=== PATIENT | female | born 1985 | race Caucasian/White ===

== ENCOUNTER → 2018-08-16 | Outpatient (CLI) | payer OTHER ==
[~2018-08-16] MED LIST: Abilify5 MG; BACTRIM; BUPR100 PO; BUPROPION; Bactrim Ds Tab1 EACH PO; CEPH500 PO; CLINDAMYCIN; CYCL10 PO; Cheratussin AC118 ML PO; Cipro500 MG PO; Cleocin HCl300 MG PO; HYDPAM25 PO; IBUP400 PO; IBUP600 PO; IBUP800 PO; METPRE4DP PO; NYST237S PO; Norco 10-325 T1 EACH PO; Norco 5-325 Ta1 EACH PO; OXYACE5T PO; SULTRIDS PO; Ultram50 MG PO; Zithromax250 MG PO; [UNRECOGNIZED DRUG - OTHER]
[2018-08-17 16:08] LABS: HPV 16 Negative (Negative); HPV 18 Negative (Negative); HPV OTHER HR TYPES Negative (Negative)
== END | disposition home or self-care (01) ==
LOC: LAB SHORT 12:35 → LAB 12:35
PROVIDERS: Obstetrics & Gynecology
DX: Z12.4 Encounter for screening for malignant neoplasm of cervix (principal)
CPT/HCPCS: 87624; G0123

== ENCOUNTER → 2019-08-17 | Outpatient (CLI) | payer OTHER ==
[2019-08-21 16:06] LABS: HPV 16 Negative (Negative); HPV 18 Negative (Negative); HPV OTHER HR TYPES Positive (Negative)
== END | disposition home or self-care (01) ==
LOC: LAB 16:27 → LAB SHORT 16:27
PROVIDERS: Obstetrics & Gynecology
DX: Z12.4 Encounter for screening for malignant neoplasm of cervix (principal)
CPT/HCPCS: 87624; 87625; G0123

== ENCOUNTER → 2020-08-22 | Outpatient (CLI) | payer OTHER ==
[~2020-08-22] MED LIST changes: +Adipex-P37.5 M1 PO; +ETONOGESTREL-E1 EAC1 VG; +EUTHYROX100 MC1 PO; +Levaquin750 MG PO; +ONDA4ODT SL; +Percocet 5-3251 EACH PO
[2020-08-27 15:12] LABS: HPV 16 Negative (Negative); HPV 18 Negative (Negative); HPV OTHER HR TYPES Positive (Negative)
== END | disposition home or self-care (01) ==
LOC: LAB SHORT 12:00 → LAB 12:00
PROVIDERS: Obstetrics & Gynecology
DX: R87.810 Cervical high risk human papillomavirus (HPV) DNA test positive (principal)
CPT/HCPCS: 87624; 87625; 88142

== ENCOUNTER 2020-10-04 17:44 | Emergency (ER) | payer OTHER ==
[~2020-10-04] VITALS: Ht 177.8 cm; Wt 104.3 kg
[~2020-10-04 17:44] MED LIST changes: -Adipex-P37.5 M1 PO; -ETONOGESTREL-E1 EAC1 VG; -EUTHYROX100 MC1 PO; -Levaquin750 MG PO; -ONDA4ODT SL; -Percocet 5-3251 EACH PO
[2020-10-04] MEDS ORDERED: EUTHYROX100 MC1 PO (18:45)
[2020-10-04] MEDS ORDERED: ETONOGESTREL-E1 EAC1 VG (18:45)
[2020-10-04] MEDS ORDERED: Adipex-P37.5 M1 PO (18:45)
[2020-10-04 19:31] LABS: Source, Urine Voided
[2020-10-04 19:35] LABS: Bilirubin, Urine Neg (Neg); Blood, Urine 2+ (Neg); Glucose Qualitative, Urine Neg (Neg); Ketones, Urine Neg (Neg); Leukocyte Esterase, Urine 1+ (Neg); Nitrite, Urine Neg (Neg); Protein, Urine 1+ (Neg); Urobilinogen, Urine NORM (Normal)
[2020-10-04 19:40] LABS: Appearance, Urine Clear (Clear); Color, Urine Yellow (P-Yellow)
[2020-10-04 19:41] LABS: Bacteria Many /hpf; Red Blood Cells, Urine 0-2 /hpf (0-2); Squamous Epithelial Cells Mod /hpf (Few)
[2020-10-04] MEDS ORDERED: ONDA4ODT SL (21:27)
[2020-10-04] MEDS ORDERED: Percocet 5-3251 EACH PO (21:27)
[2020-10-04] MEDS ORDERED: Levaquin750 MG PO (21:27)
== END 2020-10-04 21:47 | disposition home or self-care (01) ==
LOC: ER 17:44
PROVIDERS: Emergency Medicine
DX: M54.5 Low back pain (principal); D17.1 Benign lipomatous neoplasm of skin and subcutaneous tissue of trunk; M25.569 Pain in unspecified knee; Z79.899 Other long term (current) drug therapy
CPT/HCPCS: 76705; 81001; 81025; 87086; 96372-59; 96374; 96375; 99284-25; A9270; J1170; J1885

== ENCOUNTER → 2021-05-06 | Outpatient (CLI) | payer OTHER ==
[~2021-05-06] MED LIST changes: +Adipex-P37.5 M1 PO; +ETONOGESTREL-E1 EAC1 VG; +EUTHYROX100 MC1 PO; +Levaquin750 MG PO; +ONDA4ODT SL; +Percocet 5-3251 EACH PO
== END | disposition home or self-care (01) ==
LOC: LAB SHORT 11:00 → LAB 11:00
DX: R31.9 Hematuria, unspecified (principal); R82.90 Unspecified abnormal findings in urine
CPT/HCPCS: 87086

== ENCOUNTER → 2021-09-02 | Outpatient (CLI) | payer OTHER | LOC: LAB SHORT 14:46 | DX: R31.9 Hematuria, unspecified (principal); R82.90 Unspecified abnormal findings in urine | CPT/HCPCS: 87077; 87086; 87186 ==

== ENCOUNTER → 2021-10-07 | Outpatient (CLI) | payer OTHER | END | disposition home or self-care (01) | LOC: LAB SHORT 10:29 | DX: Z34.83 Encounter for supervision of other normal pregnancy, third trimester (principal); Z3A.36 36 weeks gestation of pregnancy | CPT/HCPCS: 87081; 87150 ==

== ENCOUNTER → 2021-10-15 | Outpatient (CLI) | payer OTHER | END | disposition home or self-care (01) | LOC: LAB SHORT 14:38 | DX: R82.90 Unspecified abnormal findings in urine (principal); R31.9 Hematuria, unspecified | CPT/HCPCS: 87077; 87086; 87186 ==

== ENCOUNTER 2021-10-30 04:55 | Inpatient (IN) | payer OTHER ==
[~2021-10-30] VITALS: Ht 177.8 cm; Wt 127.0 kg
[2021-10-30] MEDS ORDERED: PRENATAL TABLE1 EAC2 PO (05:22)
[2021-10-30 05:31] LABS: BASOPHILS ABSOLUTE AUTO 0.05 K/mm3 (0.00-0.23); BASOPHILS PERCENT AUTO 1 % (0-2); EOSINOPHILS ABSOLUTE AUTO 0.13 K/mm3 (0.00-0.68); EOSINOPHILS PERCENT AUTO 1 % (0-6); Hematocrit 36.8 % (33.0-51.0); IMMATURE GRAN ABSOLUTE AUTO 0.12 K/mm3 (0.00-0.10); IMMATURE GRAN PERCENT AUTO 1 % (0-1); LYMPHOCYTES ABSOLUTE AUTO 2.82 K/mm3 (0.84-5.20); LYMPHOCYTES PERCENT AUTO 29 % (21-46); MONOCYTES ABSOLUTE AUTO 1.01 K/mm3 (0.16-1.47); MONOCYTES PERCENT AUTO 11 % (4-13); Mean Corpuscular HGB 27.8 pg (26.0-34.0); Mean Corpuscular HGB Conc 32.6 g/dL (31.5-36.5); Mean Corpuscular Volume 85 fL (80-100); Mean Platelet Volume 9.4 fL (9.1-12.4); NEUTROPHILS ABSOLUTE AUTO 5.49 K/mm3 (1.96-9.15); NEUTROPHILS PERCENT AUTO 57 % (41-73); Platelet Count 288 K/mm3 (150-400); RDW Coefficient Variation 16.2 % (11.7-14.2); RDW Standard Deviation 50.1 fL (35.1-46.3); Red Blood Cell Count 4.32 M/mm3 (3.80-5.20); White Blood Cell Count 9.62 K/mm3 (4.00-11.30)
--- NOTE | 2021-10-30 08:49 | NUR ---
10/30/21 0849 Veronica Valle 0816 DELIVERY OF VIABLE FEMALE INFANT, APGARS 8/9, WEIGHT 4545G, HEAD 14IN, CHEST 15IN, LENGTH 22.5", UC GIVEN TO RN, PLACENTA DISCARDED, CORD BLOOD COLLECTED AND SENT.
--- NOTE | 2021-10-30 16:15 | NUR ---
DR ELLISON AWARE OF EXTRA TYLENOL GIVEN, TELEPHONE ORDER TO SWITCH TO ROXICODONE
[2021-10-31 04:01] LABS: BASOPHILS ABSOLUTE AUTO 0.02 K/mm3 (0.00-0.23); BASOPHILS PERCENT AUTO 0 % (0-2); EOSINOPHILS ABSOLUTE AUTO 0.07 K/mm3 (0.00-0.68); EOSINOPHILS PERCENT AUTO 1 % (0-6); Hematocrit 33.7 % (33.0-51.0); Hemoglobin 10.7 g/dL (11.5-16.0); IMMATURE GRAN ABSOLUTE AUTO 0.08 K/mm3 (0.00-0.10); IMMATURE GRAN PERCENT AUTO 1 % (0-1); LYMPHOCYTES ABSOLUTE AUTO 1.59 K/mm3 (0.84-5.20); LYMPHOCYTES PERCENT AUTO 17 % (21-46); MONOCYTES ABSOLUTE AUTO 0.75 K/mm3 (0.16-1.47); MONOCYTES PERCENT AUTO 8 % (4-13); Mean Corpuscular HGB 27.9 pg (26.0-34.0); Mean Corpuscular HGB Conc 31.8 g/dL (31.5-36.5); Mean Corpuscular Volume 88 fL (80-100); NEUTROPHILS ABSOLUTE AUTO 6.85 K/mm3 (1.96-9.15); NEUTROPHILS PERCENT AUTO 73 % (41-73); Platelet Count 195 K/mm3 (150-400); RDW Coefficient Variation 16.3 % (11.7-14.2); RDW Standard Deviation 52.4 fL (35.1-46.3); Red Blood Cell Count 3.83 M/mm3 (3.80-5.20); White Blood Cell Count 9.36 K/mm3 (4.00-11.30)
--- NOTE | 2021-11-01 10:36 | NUR ---
DISCHARGE INSTRUCTIONS, WRITTEN AND VERBAL, GIVEN TO PT AND [facility]I. FOLLOW UP APPOINTMENT SCHEDULED. WRITTEN PRESCRIPTIONS GIVEN TO PT. PERSONAL BELONGINGS RETURNED. IV DISCONTINUED. MMR VACCINE GIVEN IN LEFT DELTOID. PT IS DISCHARGED HOME.
== END 2021-11-01 12:00 | disposition home or self-care (01) | DRG 788 ==
LOC: BC 04:55 → PRE IP 07:30 → BC 18:56
PROVIDERS: Family Medicine; ADMIT Obstetrics & Gynecology
PROC: 10D00Z1 Extraction of Products of Conception, Low, Open Approach (ICD-10-PCS; principal; 2021-10-30 07:30)
DX: O34.211 Maternal care for low transverse scar from previous cesarean delivery (principal); Z3A.40 40 weeks gestation of pregnancy; Z37.0 Single live birth; O32.1XX0 Maternal care for breech presentation, not applicable or unspecified; O77.0 Labor and delivery complicated by meconium in amniotic fluid; Z91.030 Bee allergy status; Z88.1 Allergy status to other antibiotic agents; O99.344 Other mental disorders complicating childbirth; F41.9 Anxiety disorder, unspecified; F90.9 Attention-deficit hyperactivity disorder, unspecified type
CPT/HCPCS: 36415; 74176; 85025; 86850; 86900; 86901; 90471; 90707; A9270; J0690; J1170; J1885; J2405; J2765; J3010; J7120

== ENCOUNTER 2025-01-30 21:26 | Emergency (ER) | payer OTHER ==
[~2025-01-30] VITALS: Ht 177.8 cm; Wt 124.7 kg
[~2025-01-30 21:26] MED LIST changes: +ASPI81CH PO; +GLYB2.5 PO; +IBU800 MG PO; +PRENATAL TABLE1 EAC2 PO
[2025-01-30 22:34] LABS: Alanine Aminotransfer (ALT/SGP 52.0 U/L (12-78); Albumin, Blood 3.1 g/dL (3.4-5.0); Albumin/Globulin Ratio 0.8 (0.8-1.8); Anion Gap 9.0 mmol/L (3-11); Aspartate Aminotrans (AST/SGOT 33.0 U/L (12-37); Bilirubin, Total 0.3 mg/dL (0.1-1.0); Blood Urea Nitrogen 14.0 mg/dL (8-24); CO2, Blood 26.0 mmol/L (21-32); Calcium, Blood 8.9 mg/dL (8.5-10.1); Chloride, Blood 109.0 mmol/L (98-108); Creatinine, Blood 0.62 mg/dL (0.40-1.00); Globulin, Blood 4.0 g/dL (2.2-4.0); Glucose, Blood 99.0 mg/dL (70-99); Potassium, Blood 4.2 mmol/L (3.5-5.5); Sodium, Blood 140.0 mmol/L (136-145); Total Protein, Blood 7.1 g/dL (6.4-8.2)
[2025-01-30 22:40] LABS: BASOPHILS ABSOLUTE AUTO 0.07 K/mm3 (0.00-0.23); BASOPHILS PERCENT AUTO 1 % (0-2); EOSINOPHILS ABSOLUTE AUTO 0.27 K/mm3 (0.00-0.68); EOSINOPHILS PERCENT AUTO 3 % (0-6); Hematocrit 34.5 % (33.0-51.0); Hemoglobin 10.9 g/dL (11.5-16.0); IMMATURE GRAN ABSOLUTE AUTO 0.19 K/mm3 (0.00-0.10); IMMATURE GRAN PERCENT AUTO 2 % (0-1); LYMPHOCYTES ABSOLUTE AUTO 2.42 K/mm3 (0.84-5.20); LYMPHOCYTES PERCENT AUTO 28 % (21-46); MONOCYTES ABSOLUTE AUTO 0.66 K/mm3 (0.16-1.47); MONOCYTES PERCENT AUTO 8 % (4-13); Mean Corpuscular HGB Conc 31.6 g/dL (31.5-36.5); Mean Corpuscular Volume 87 fL (80-100); NEUTROPHILS ABSOLUTE AUTO 5.02 K/mm3 (1.96-9.15); NEUTROPHILS PERCENT AUTO 58 % (41-73); NRBC ABSOLUTE 0.00 K/mm3 (0.00-0.02); NRBC Auto 0.0 /100 WBC (0.0-0.2); Platelet Count 286 K/mm3 (150-400); RDW Coefficient Variation 14.9 % (11.7-14.2); RDW Standard Deviation 47.6 fL (35.1-46.3)
[2025-01-30] MEDS ORDERED: Ketorolac Tromethamine 30mg Vial IV ONE (22:55)
[2025-01-30 23:05] VITALS: BP 137/99
== END 2025-01-30 23:40 | disposition home or self-care (01) ==
LOC: ER 21:26
PROVIDERS: Emergency Medicine
DX: O90.0 Disruption of cesarean delivery wound (principal); Z79.899 Other long term (current) drug therapy; Z88.1 Allergy status to other antibiotic agents; Z88.0 Allergy status to penicillin
CPT/HCPCS: 80053; 85025; 96374; 99283-25; J1885